=== PATIENT | male | born 1960 | race Caucasian/White ===

== ENCOUNTER 2024-11-06 13:13 | Observation (INO) | payer BC, SELFPAY ==
[2024-11-06] VITALS (106 sets, daily range): BP systolic 126–175; BP diastolic 76–103; PULSE 66–108; RESP 10–25; TEMP 36.9–37.3; O2SAT 85–100
--- NOTE | 2024-11-06 13:30 | DI.CT_ITS ---
Exam(s) CT ABDOMEN PELVIS W EXAM: CT ABDOMEN PELVIS W CLINICAL HISTORY: ? incarcerated hernia. TECHNIQUE: Imaging Protocol: Axial computed tomography images with coronal and sagittal reformatted images were created and reviewed CONTRAST MATERIAL: Intravenous: Omnipaque 350 Contrast volume:100 ml Oral: no COMPARISON: No exams were available for comparison FINDINGS: ABDOMEN and PELVIS: Lung Bases: No acute findings. Mild dependent changes. Liver: Normal density. No suspicious mass. Gallbladder and biliary tract: No radiodense calculus. No wall thickening or pericholecystic fluid. No biliary dilation. Pancreas: Normal density. No abnormal calcifications or inflammatory process. No evidence of mass. Spleen: Normal. Kidneys: Normal size, contour and axis. No radiodense stones. No obstructive uropathy. No suspicious masses seen. Adrenal glands: No masses seen. Vasculature: Abdominal aorta non-dilated. IVC filter in place. Soft tissues: Ventral abdominal wall hernia containing loops of small bowel. The larger hernia is toward the left of the umbilicus. There is a 2nd smaller component to the right of the umbilicus. There is an additional fat containing hernia more inferiorly Bowel: The stomach is markedly distended with fluid. The proximal small bowel is also markedly distended. The small bowel enters into a large ventral hernia. The efferent loop is narrowed in decompressed, consistent with obstruction. There is no evidence of wall thickening or pneumatosis. Peritoneal cavity: Small amount of fluid in the lower pelvis. No focal abscess collection. No mesenteric inflammatory response. No free air. Bones: Unremarkable for age. Reproductive organs: Unremarkable. Lymph nodes: No pathologically enlarged lymph nodes. Bladder: No gross wall thickening. No calculi.No focal mass. IMPRESSION:: Small-bowel obstruction within a large left paraumbilical anterior abdominal wall hernia. The preliminary [facility] report was reviewed. RADIATION DOSE DELIVERED: Total DLP DATA REPOSITORY: All CT scans at this facility are submitted to the National Radiology Data Registry (NRDR) Dose Index Registry (DIR) with the [employer] (A[employer]). RADIATION OPTIMIZATION: All CT scans at this facility use at least one of these dose optimization techniques: automated exposure control; mA and/or kV adjustment per patient size (includes targeted exams where dose is matched to clinical indication); or iterative reconstruction.
--- NOTE | 2024-11-06 13:53 | W.ED.GENAD ---
Discharge Plan Discharge Details Chief Complaint: Abd Prob Primary Care Provider: Rod Stroud ED Provider: Jose Alejandro Miranda Home Meds and New Rx's Prescriptions: No Action warfarin 5 mg tablet 5 mg PO DAILY atorvastatin [Lipitor] 20 mg tablet 20 mg PO DAILY omeprazole 20 mg capsule,delayed release(DR/EC) 20 mg PO DAILY HPI General Date/Time Provider Initiated Documentation: 11/06/24 13:21. HPI Narrative: This is a 64-year-old male presenting to the emergency department with a chief complaint of abdominal pain. 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 Patient states that he began to develop abdominal pain last night it is in the right middle abdomen and periumbilical area. He relates it to incisional hernias that he has. Patient has a history of similar pain in the past although it has historically resolved spontaneously. He is concerned because this is not happening. He has had some nausea and has vomited once. No bloody vomitus and nothing unusual about the vomitus. No diarrhea or constipation. No fevers or rash. No cough or congestion. No dysuria or hematuria. No fevers. Patient denies any recent injuries. Related Data Home Medications ?Medication ?Instructions ?Recorded ?Confirmed atorvastatin 20 mg tablet (Lipitor) 20 mg PO DAILY 11/06/24 11/06/24 omeprazole 20 mg capsule,delayed 20 mg PO DAILY 11/06/24 11/06/24 release warfarin 5 mg tablet 5 mg PO DAILY 11/06/24 11/06/24 Allergies Allergy/AdvReac Type Severity Reaction Status Date / Time Penicillins Allergy Intermediate Swelling/Ed Verified 11/06/24 13:25 christian strawberry Allergy Intermediate Skin Rash Verified 11/06/24 13:25 General Stated Complaint: Abd Prob REBECCA: 3 Review of Systems All systems reviewed & are unremarkable except as noted in HPI and below Constitutional Constitutional: Reports system reviewed and no additional complaints, except as documented, Denies fever(s), Denies weakness and Denies weight loss Eyes Eyes: Denies blurry vision ENT Ears, Nose, Mouth, and Throat: Denies sore throat Cardiovascular Cardiovascular: Denies chest pain, Denies palpitations and Denies dyspnea Respiratory Respiratory: Denies cough, Denies dyspnea and Denies wheezing Gastrointestinal Gastrointestinal: Reports abdominal pain, Denies diarrhea, Reports nausea, Reports vomiting and Denies hematemesis Genitourinary Genitourinary: Denies hematuria and Denies dysuria Musculoskeletal Musculoskeletal: Denies back pain, Denies arthralgias and Denies numbness Neurologic Neurologic: Denies numbness and Denies weakness Psychiatric Psychiatric: Denies suicidal ideation Endocrine Endocrine: Denies palpitations Allergic/Immunologic Allergic/Immunologic: Denies wheezing Exam Const General: no acute distress and well groomed HENMT Mouth: oral mucosae normal and moist mucous membranes Throat: posterior oropharynx normal Eyes Conjunctivae: conjunctivae normal Sclera: sclerae normal Neck Neck: full ROM and No JVD Resp Effort & Inspection: normal respiratory effort Auscultation: clear to auscultation bilaterally Cardio Rate: regular rate Rhythm: regular rhythm Heart Sounds: no murmurs GI Palpation: soft and tender Other: There is tenderness, particularly at the large incisional hernia in the central abdomen. No rebound. Bowel sounds are positive. There is some guarding. Skin General skin exam: no rashes or lesions noted Neuro General: patient alert and patient oriented x3 Extrem General: normal to inspection and full ROM Psych Appearance: grossly normal Mental Status: mental status grossly normal Speech and Movement: speech and movement normal Affect: normal affect Thought Process: normal Course Vital Signs Vital signs: Vital Signs Temperature 36.9 C 11/06/24 13:21 Pulse 101 H 11/06/24 13:21 Respiratory Rate 18 11/06/24 13:21 Blood Pressure 143/90 H 11/06/24 13:21 Pulse Oximetry 97 11/06/24 13:21 Temperature 36.9 C 11/06/24 13:21 Temperature Source Tympanic 11/06/24 13:21 Pulse 101 H 11/06/24 13:21 Respiratory Rate 18 11/06/24 13:21 Blood Pressure 143/90 H 11/06/24 13:21 Blood Pressure Position Sitting 11/06/24 13:21 Pulse Oximetry 97 11/06/24 13:21 Oxygen Delivery Method Room Air 11/06/24 13:21 Oxygen Flow Rate 0 11/06/24 13:21 Pain Level 10 11/06/24 13:21 Medical Decision Making This is a 64-year-old male presents emergency department the chief complaint of abdominal pain. The patient was seen and examined by me. Old charts were reviewed and nursing notes were reviewed. Old charts largely surround some back and leg pain and physical therapy and are unrelated. An IV was established and the patient was bolused with crystalloid. He was provided Dilaudid for pain control and Zofran for nausea. CT was initiated as I am worried about the possibility of a strangulated hernia or an incarcerated hernia or an obstruction. Labs reveal a mildly elevated white count and lactate. CT was initiated which revealed an incarcerated hernia. Patient had been bolused with a liter of crystalloid and a lactate has been redrawn. Further discussion with the patient reveals that he is on Coumadin. 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 He has been on Coumadin since. INR was drawn. Case was discussed with general surgery who are coming to the emergency department to evaluate the patient. [facility] Medical History (Updated 11/06/24 @ 13:58 by Jose Alejandro Miranda MD) Incisional hernia Back pain Social History Smoking/Tobacco Use Status: Never Smoking risk assessment performed?: Yes Alcohol Intake: current Alcohol Intake frequency: holidays/special occasions only Alcohol type: beer and hard liquor Substance use type: does not use
[2024-11-06] MEDS: Ondansetron 4 MG/2 ML VIAL IVP ×3 (14:01→20:42)
[2024-11-06] MEDS: HYDROmorphone 2 MG/ML SYR 0.5 MG IVP ×3 (14:01→20:46)
[2024-11-06] MEDS: Normal Saline 1,000 ML 1000 ML IV (14:03)
[2024-11-06 14:12] LABS: HCT 51.4 % (40.0-50.0); HGB 16.8 g/dL (13.5-17.5); MCH 27.4 pg (27.0-33.0); MCHC 32.7 % (32.0-36.0); MCV 84 fL (80-95); MPV 10.4 fL (8.0-11.0); Platelet Count 223 10^3/uL (130-400); RBC 6.13 10^6/uL (4.36-5.78); RDW 12.9 % (11.8-14.1); RDW-SD 39.4 fL; WBC 13.84 10^3/uL (4.4-10.8)
[2024-11-06 14:28] LABS: ALT 36 U/L (16-63); AST 18 U/L (15-37); Albumin 4.1 g/dL (3.4-5.0); Alkaline Phosphatase 85 U/L (46-116); Anion Gap 10.7 mmol/L (3-11); BUN 17 mg/dL (7-18); Bilirubin, Total 0.6 mg/dL (0.2-1.0); CO2 28.3 mmol/L (21.0-32.0); Calcium 9.6 mg/dL (8.5-10.1); Chloride 104 mmol/L (98-107); Estimated GFR 75.90 (mL/min/1.73m2); Glucose 160 mg/dL (74-106); Potassium 4.2 mmol/L (3.5-5.1); Sodium 143 mmol/L (136-145); Total Protein 8.2 g/dL (6.4-8.2)
[2024-11-06] MEDS: HYDROmorphone 2 MG/ML SYR 0.25 MG IVP (15:48)
[2024-11-06] MEDS: Prochlorperazine 10 MG/2 ML VIAL IVP (15:52)
[2024-11-06] MEDS: Omnipaque 350 MG/ML 100 ML BTL IJ (15:58)
[2024-11-06] MEDS: Normal Saline - Diluent 50 ML VIAL IJ (15:59)
[2024-11-06] MEDS: Normal Saline Flush 10 ML SYR IVP (16:01)
--- NOTE | 2024-11-06 16:15 | DI.[facility]_ITS ---
Addendum created by Fartun Womack MD on 11/06/2024 4:15:40 PM EDT: I discussed case findings with Jose Alejandro Miranda 11/06/2024 4:15 PM EDT. Initial report created on 11/06/2024 4:14:02 PM EDT: PROCEDURE INFORMATION: Exam: CT Abdomen And Pelvis With Contrast Exam date and time: 11/06/2024 3:53 PM Age: 64 years old Clinical indication: Other: ? Incarcerated hernia TECHNIQUE: Imaging protocol: Computed tomography of the abdomen and pelvis with contrast. Contrast material: OMNIPQUE 350; Contrast volume: 100 ml; Contrast route: INTRAVENOUS (IV); COMPARISON: No relevant prior studies available. FINDINGS: Lungs: There is mild bibasilar atelectasis. Liver: Normal. No mass. Gallbladder and biliary ducts: Gallbladder partially contracted. Pancreas: Normal. No ductal dilation. Spleen: Normal. No splenomegaly. Adrenal glands: Normal. No mass. Kidneys and ureters: Normal. No hydronephrosis. Stomach and bowel: There is marked gastric distension. There are 3 anterior abdominal wall bowel containing hernias. There are multiple distended small bowel loops with diameter exceeding 4 cm. There is a transition zone involving the most superior hernia with afferent distension and efferent decompression. This corresponds to the approximate distal jejunal level. There is postsurgical change in the upper abdomen. Appendix: No evidence of appendicitis. Intraperitoneal space: There is a small amount of free fluid present in the deep pelvis. Vasculature: Caval filter in place. Lymph nodes: Unremarkable. No enlarged lymph nodes. Urinary bladder: Unremarkable as visualized. Reproductive: Unremarkable as visualized. Bones/joints: Moderate lumbar spondylosis. Soft tissues: See Stomach and bowel finding. IMPRESSION: There are several bowel containing anterior abdominal wall hernias. There is high-grade small bowel obstruction associated with incarceration of the most superior hernia. Dictated and Authenticated by: Fartun Womack MD. Orderin Ruben Blount MD
[2024-11-06 16:47] LABS: INR 1.8 (0.9-1.1); Prothrombin Time 17.4 sec (9.1-11.1)
--- NOTE | 2024-11-06 17:48 | W.PM.HP.N ---
Date of service: 11/06/24 Time of Service: 17:48 Assessment and Plan Assessment and plan (1) Small bowel obstruction: Status: Acute Assessment and plan: I was able to review the CT scan, and I do think it is congruent with his history and exam, demonstrating an acute small bowel obstruction associated with his incisional hernia. We talked about the natural history of this, my recommendation for surgery to at least address the small bowel obstruction. Irwin is quite nervous about the prospects of an operation, and largely this seems associated with regret for his original surgery versus alternative treatments. We talked about a number of different treatment strategies, and as the major problem at this moment is the small bowel obstruction, he is most interested in attempted reduction under sedation and reassessment thereafter. I explained that this is suboptimal in the sense that it precludes direct visualization of the bowel, which could certainly be ischemic and at risk for necrosis and perforation. I think Irwin understands that quite clearly, and he still prefers at least an attempt at that. After reviewing all the other options with Irwin, we elected to proceed with attempted reduction and a trial of observation. I inserted a nasogastric tube in the usual fashion, and decompress the stomach, which did have a fair amount of gastric contents. We left this in place for about half an hour. After that, with procedural sedation administered by the emergency department staff, and with Irwin in steep Trendelenburg positioning, I applied slow gentle pressure along the hernia, carefully manipulating the contents of the hernia and reducing them back into the peritoneal cavity. There were audible bowel sounds immediately after reduction. With deep and retraction, I can palpate the entire edge of the fascia, and it feels that the hernia sac and all of its contents are entirely reduced. As pressure is released, there is almost immediate return of the hernia, but it remains easily reducible, and I am optimistic that the small bowel obstruction has been relieved. With the hernia reduced I applied an ice pack over top of the length of the incision, and secured this in place with an abdominal binder. Irwin was then allowed to awaken from the anesthetic. Subjectively, his symptoms were already improved. I will admit him to the floor, with ongoing nasogastric decompression for now. I will repeat the serum lactate in a few hours to ensure that that remains on a downward trajectory. Obviously, if Irwin has any worrisome symptoms of peritonitis, then we need to reconsider exploration. I will also repeat some basic labs in the morning to ensure that the leukocytosis is resolving. History of Present Illness History of Present Illness Chief Complaint: abdominal pain Narrative: Irwin is 64 years old. He has known incisional hernias that he estimates have been around for about 20 years or so. They occurred after 2 laparotomies for excision of desmoid tumors. Although he occasionally gets some discomfort at the hernia site, generally, he is not bothered by them. They tend to be soft, and it sounds like he is able to reduce them. Sometime late last night, around 11:00 he started experiencing sharp pain little bit to the left side of his incision. It felt different in terms of character compared to discomfort he had in the past. He noticed that the hernia site felt a little more firm, and despite various attempts at repositioning, and manipulating the hernia, he was not able to reduce it. The pain became more intense today, was associated with nausea, vomiting, some fatigue and a little bit of lightheadedness. He came to the emergency department with those major complaints. He had a low-grade leukocytosis, and a serum lactate level around 3. He underwent a CT scan of the abdomen and pelvis that confirmed multiple midline ventral hernias, and concern for an acute small bowel obstruction associated with the upper left portion of the defect. Other past medical history includes deep vein thrombosis for which she takes warfarin. This diagnosis was back at the time of his desmoid tumors. He also has an inferior vena cava filter. He is allergic to penicillin and strawberries. Review of Systems Constitutional Constitutional: Reports fatigue, Denies fever(s) and Reports lethargy Eyes Eyes: Reports system reviewed and no additional complaints, except as documented ENT Ears, Nose, Mouth, and Throat: Reports system reviewed and no additional complaints, except as documented Cardiovascular Cardiovascular: Denies chest pain and Denies dyspnea Respiratory Respiratory: Denies chest congestion, Denies cough and Denies dyspnea Gastrointestinal Gastrointestinal: Reports abdominal pain, Reports belching, Denies change in bowel habits, Reports nausea and Reports vomiting Genitourinary Genitourinary: Reports system reviewed and no additional complaints, except as documented Musculoskeletal Musculoskeletal: Reports system reviewed and no additional complaints, except as documented Neurologic Neurologic: Denies behavioral changes and Denies memory loss Psychiatric Psychiatric: Denies behavioral changes and Denies memory loss Endocrine Endocrine: Reports fatigue Hematologic/Lymphatic Hematologic/Lymphatic: Denies easy bleeding and Denies easy bruising PFSH All Active Problems (Updated 11/06/24 @ 18:03 by Daniel Álvarez MD) Small bowel obstruction (Acute) Medical History Incisional hernia Back pain Social History Smoking/Tobacco Use Status: Never Smoking risk assessment performed?: Yes Alcohol Intake: current Alcohol Intake frequency: holidays/special occasions only Alcohol type: beer and hard liquor Substance use type: does not use Meds Allergies and Home Medications Allergies Allergy/AdvReac Type Severity Reaction Status Date / Time Penicillins Allergy Intermediate Swelling/Ed Verified 11/06/24 13:25 christian strawberry Allergy Intermediate Skin Rash Verified 11/06/24 13:25 Home Medications ?Medication ?Instructions ?Recorded ?Confirmed ?Type atorvastatin 20 mg tablet (Lipitor) 20 mg PO DAILY 11/06/24 11/06/24 History omeprazole 20 mg capsule,delayed 20 mg PO DAILY 11/06/24 11/06/24 History release warfarin 5 mg tablet 5 mg PO DAILY 11/06/24 11/06/24 History Exam Const General: cooperative and ill appearing Orientation: alert, awake and oriented x3 HENMT Head: normal to inspection Eyes General: appearance normal, both eyes and all related structures Neck Neck: normal visual inspection, full ROM and no lymphadenopathy Chest Chest: normal inspection of the chest Resp Effort & Inspection: normal respiratory effort and no cough Auscultation: clear to auscultation bilaterally Cardio Rate: regular rate Rhythm: regular rhythm Heart Sounds: S1 normal and S2 normal GI Inspection: distended Palpation: soft and hernia (midline incisional; no ecchymosis) Auscultation: absent bowel sounds Skin General skin exam: no rashes or lesions noted Lesions: no lesions Neuro General: patient alert, patient awake and patient oriented x3 Results Labs 11/06/24 14:00 11/06/24 14:00 Labs: Laboratory Results - last 24 hr 11/06/24 11/06/24 14:00 16:25 WBC 13.84 H RBC 6.13 H Hgb 16.8 Hct 51.4 H MCV 84 MCH 27.4 MCHC 32.7 RDW 12.9 Plt Count 223 MPV 10.4 PT 17.4 H INR 1.8 H VBG Lactate 3.5 H* 2.3 H* Sodium 143 Potassium 4.2 Chloride 104 Carbon Dioxide 28.3 Anion Gap 10.7 BUN 17 Creatinine 1.1 Est GFR (CKD-EPI 2020) 75.90 Glucose 160 H Calcium 9.6 Total Bilirubin 0.6 AST 18 ALT 36 Alkaline Phosphatase 85 Total Protein 8.2 Albumin 4.1 Last Vital Signs Temp 98.4 F 11/06/24 13:21 Pulse 85 11/06/24 15:50 Resp 15 11/06/24 15:50 BP 143/90 H 11/06/24 13:21 Pulse Ox 93 11/06/24 15:50 Time Spent Time spent with Patient: >75 minutes Time was spent: preparing to see the patient(eg.review tests), obtaining and/or reviewing separately otained hiistory, ordering medications,tests, procedures, referring, communicating with other health healthcare specialist, indepentently interpreting results, counseling the patient and care coordination
[2024-11-06] MEDS: Normal Saline 1,000 ML 125 ML IV (18:22)
[2024-11-06] MEDS: Propofol 200 MG/20 ML VIAL 100 MG IVP (18:55)
--- NOTE | 2024-11-06 19:06 | DI.RAD_ITS ---
Exam(s) XR PORTABLE CHEST AP POST LINE EXAM: XR PORTABLE CHEST AP POST LINE CLINICAL HISTORY: NGT placement. TECHNIQUE: 2D digital imaging was performed. COMPARISON: CT CT ABDOMEN PELVIS W from 11/06/2024 FINDINGS: Single AP portable view. There is an NG tube in stomach. Heart size is upper normal. The mediastinum is not widened. There is mild infiltrate in the left lower lobe posterior basal segment. No pleural effusions. No pulmonary edema. IMPRESSION: Mild left lower lobe increased markings either atelectasis or mild infiltrate. DATA REPOSITORY: RADIATION DOSE DELIVERED:
--- NOTE | 2024-11-06 19:57 | DI.[facility]AD_ITS ---
PROCEDURE INFORMATION: Exam: XR Chest Exam date and time: 11/06/2024 7:33 PM Age: 64 years old Clinical indication: Device placement; Ng tube placement TECHNIQUE: Imaging protocol: Radiologic exam of the chest. Views: 1 view. COMPARISON: CT ABDOMEN PELVIS W 11/06/2024 3:53 PM FINDINGS: Tubes, catheters and devices: Nasogastric tube in place. The tip is seen at the gastric cardia level. Lungs: Left lower lobe atelectasis. Pleural spaces: Unremarkable. No pleural effusion. No pneumothorax. Heart/Mediastinum: Cardiomegaly. Bones/joints: Unremarkable. Gastrointestinal tract: Small bowel distension noted. IMPRESSION: Nasogastric tube tip at the gastric cardia level. Dictated and Authenticated by: Fartun Womack MD. Orderin Henri Sanchez MD
[2024-11-06] MEDS: Lactated Ringers 1,000 ML 75 ML IV (22:24)
[2024-11-06] MEDS: ACETAMINOPHEN 1,000 MG/100 ML BAG 400 MG IVPB (22:24)
[2024-11-06] MEDS: Pantoprazole 40 MG VIAL IVP (22:25)
--- NOTE | 2024-11-06 23:11 | W.EDPROG ---
Date of service: 11/06/24 Time of Service: 23:11 Medical Decision Making Patient was received in signout, please refer to Dr. Miranda's physical exam, assessment and plan. At time of signout we are awaiting follow-up by surgery, Dr. Daniel Álvarez came and evaluated the patient, he did offer surgical intervention to the patient however the patient declined secondary to his history of complications with surgeries. Hernia certainly needs reduction, we did offer the patient sedation for reduction, and discussed the risks and benefits associated with this. Through shared decision making process between surgery and the patient patient has consented and would like to move forward with reduction via sedation. I discussed risks and benefits of sedation with the patient and he also agrees and understands and is a personal discussion between he and I. Patient was subsequently sedated with propofol, and his hernia was reduced without complication. He will be admitted to the medical surgical floor for further monitoring. I have extensively reviewed the treatment plan with the patient. I have addressed all patient concerns at this time. I have also discussed the plan with the admitting physician and they agree with the current assessment and plan and have agreed to assume responsibility for the patient. All parties demonstrate verbal understanding and agreement with our assessment and plan at this time. The documentation in this chart was dictated using [employer] dictation software. Please excuse any dictation errors. Procedure Procedural Sedation Date of Procedure: 11/06/24 Time of procedure: 23:13 Provider that performed the procedure: Jose Alejandro Reyes Indication: Pain control and Procedural optimization Patient Consented: Verbally and Written Standard Time Out Performed: Yes Sedation Given: Propofol Amount of sedation(mg): 90 Preparation: surveillance monitor applied, pulse oximeter, capnometry used, supplemental O2 applied, reversal agents at bedside and suction/airway equipment at bedside Time of Last PO Intake: 12:00 Discharge Plan Disposition Patient Disposition: Admit to [facility] Condition: Improving Discharge Details Clinical Impression: Incarcerated incisional hernia Admit Date/Time: 11/06/24 19:06 Admit Provider: Daniel Álvarez Attending Provider: Daniel Álvarez Primary Care Provider: Rod Stroud ED Provider: Jose Alejandro Reyes
--- NOTE | 2024-11-07 02:49 | W.PC.ACHO ---
Registration Status: ADM YVAN Primary Language: Preferred Language: ED Information & Data Chief Complaint Abd Prob 11/06/24 14:04 Chief Complaint Abd Prob 11/06/24 13:56 Triage Note h/o multiple abdominal 11/06/24 13:21 surgeries resulting in numerous hernias. Has had numerous incidents in the past that food was unable to pass. Pain started at midnight last night after dinner- this is more painful than anything he has ever had in the past. Vomited undigested food this AM Medical / Surgical History (Last Reviewed 11/06/24 @ 17:50 by Daniel Álvarez MD) Incisional hernia Back pain Most Recent Vital Signs Temperature 37.3 C 11/06/24 21:22 Temperature Source Tympanic 11/06/24 13:21 Pulse 89 11/06/24 21:22 Pulse Rhythm Regular 11/06/24 21:22 Pulse 80 11/06/24 20:50 Respiratory Rate 18 11/06/24 21:22 Respiratory Effort Normal 11/06/24 21:22 Respiratory Depth Normal 11/06/24 21:22 Respiratory Pattern Normal 11/06/24 21:22 Blood Pressure 150/84 H 11/06/24 21:22 Blood Pressure Mean 99 11/06/24 20:46 Blood Pressure Position Sitting 11/06/24 13:21 Pulse Oximetry 94 11/06/24 21:38 Respiratory End-tidal CO2 42 11/06/24 20:50 Oxygen Delivery Method Nasal Cannula 11/06/24 21:38 Oxygen Flow Rate 2 11/06/24 21:38 Pain Level 2 11/06/24 21:22 Allergies Penicillins Allergy (Intermediate, Verified 11/06/24 13:25) Swelling/Edema strawberry Allergy (Intermediate, Verified 11/06/24 13:25) Skin Rash Active Medications Generic Name Dose Route Start Last Admin Trade Name Freq PRN Reason Stop Dose Admin Ringer's Solution 1,000 mls @ 75 mls/hr 11/06/24 21:12 11/06/24 22:24 IV 75 mls/hr INFUSION KEELY Administration Acetaminophen 1,000 mg in 100 mls @ 400 mls/hr 11/06/24 22:00 11/06/24 22:24 Ofirmev IVPB 400 mls/hr Q6H KEELY Administration Pantoprazole Sodium 40 mg 11/06/24 22:30 11/06/24 22:25 Pantoprazole 40 Mg Vial IVP 40 mg DAILY@0730 KEELY Administration IV IV Catheter Type [Right Peripheral IV Antecubital] IV Catheter Type [Left Peripheral IV Antecubital] IV Catheter Gauge [Right 18 Antecubital] IV Catheter Gauge [Left 18 Antecubital] Diet Orders Category Date Time Status Nothing Per Oral [DIET] Nutrition 11/06/24 21:12 Active Diagnostics 11/07/24 11/06/24 11/06/24 Range/Units Unknown : 16:25 WBC Pending (4.4-10.8) 10^3/uL RBC Pending (4.36-5.78) 10^6/uL Hgb Pending (13.5-17.5) g/dL Hct Pending (40.0-50.0) % MCV Pending (80-95) fL MCH Pending (27.0-33.0) pg MCHC Pending (32.0-36.0) % RDW Pending (11.8-14.1) % Plt Count Pending (130-400) 10^3/uL MPV Pending (8.0-11.0) fL Immature Gran % Pending Neutrophils % Pending Lymphocytes % Pending Monocytes % Pending Eosinophils % Pending Basophils % Pending Absolute Neutrophils Pending Absolute Lymphocytes Pending Absolute Monocytes Pending Absolute Eosinophils Pending Absolute Basophils Pending PT Pending 17.4 H (9.1-11.1) sec INR Pending 1.8 H (0.9-1.1) VBG Lactate 2.0 2.3 H* (<or=2.0) mmol/L Sodium Pending (136-145) mmol/L Potassium Pending (3.5-5.1) mmol/L Chloride Pending (98-107) mmol/L Carbon Dioxide Pending (21.0-32.0) mmol/L Anion Gap Pending (3-11) mmol/L BUN Pending (7-18) mg/dL Creatinine Pending (0.70-1.30) mg/dL Est GFR (CKD-EPI 2020) Pending (mL/min/1.73m2) Glucose Pending (74-106) mg/dL Calcium Pending (8.5-10.1) mg/dL Total Bilirubin (0.2-1.0) mg/dL AST (15-37) U/L ALT (16-63) U/L Alkaline Phosphatase (46-116) U/L Total Protein (6.4-8.2) g/dL Albumin (3.4-5.0) g/dL 11/06/24 Range/Units 14:00 WBC 13.84 H (4.4-10.8) 10^3/uL RBC 6.13 H (4.36-5.78) 10^6/uL Hgb 16.8 (13.5-17.5) g/dL Hct 51.4 H (40.0-50.0) % MCV 84 (80-95) fL MCH 27.4 (27.0-33.0) pg MCHC 32.7 (32.0-36.0) % RDW 12.9 (11.8-14.1) % Plt Count 223 (130-400) 10^3/uL MPV 10.4 (8.0-11.0) fL Immature Gran % Neutrophils % Lymphocytes % Monocytes % Eosinophils % Basophils % Absolute Neutrophils Absolute Lymphocytes Absolute Monocytes Absolute Eosinophils Absolute Basophils PT (9.1-11.1) sec INR (0.9-1.1) VBG Lactate 3.5 H* (<or=2.0) mmol/L Sodium 143 (136-145) mmol/L Potassium 4.2 (3.5-5.1) mmol/L Chloride 104 (98-107) mmol/L Carbon Dioxide 28.3 (21.0-32.0) mmol/L Anion Gap 10.7 (3-11) mmol/L BUN 17 (7-18) mg/dL Creatinine 1.1 (0.70-1.30) mg/dL Est GFR (CKD-EPI 2020) 75.90 (mL/min/1.73m2) Glucose 160 H (74-106) mg/dL Calcium 9.6 (8.5-10.1) mg/dL Total Bilirubin 0.6 (0.2-1.0) mg/dL AST 18 (15-37) U/L ALT 36 (16-63) U/L Alkaline Phosphatase 85 (46-116) U/L Total Protein 8.2 (6.4-8.2) g/dL Albumin 4.1 (3.4-5.0) g/dL Intake and Output - 24 Hour Total 11/06/24 13:13 thru 11/06/24 23:12 Intake Total 1000 Output Total 700 Balance 300 Weight 101.151 kg Intake: IV 1000 Output: Gastric Drainage 700 Other: Urine Color Yellow Urine Appearance Clear Falls Risk Assessment History of Falls No History 11/06/24 21:22 Contributing Factors No Factors 11/06/24 21:22 Ambulatory Aids Uses ambulatory device 11/06/24 21:22 Tubes/Lines None 11/06/24 21:22 Gait Evaluation W/no contributing factors 11/06/24 21:22 Cognition No cognitive impairment 11/06/24 21:22 Fall Total Score 11/06/24 21:22 Level of Risk Moderate Risk 11/06/24 21:22 Problems (Last Reviewed 11/06/24 @ 17:50 by Daniel Álvarez MD) Small bowel obstruction (Acute) v v v v v v v v v Sending and/or Receiving Nurses: Please use comment section below to note any information pertinent to the patient hand-off not included above. Information / Comments: Report received from:Elenita RIVAS . All questions answered.
[2024-11-07] MEDS: ACETAMINOPHEN 1,000 MG/100 ML BAG 400 MG IVPB ×2 (04:18→10:02)
[2024-11-07 06:40] LABS: Abs Immature Grans 0.01 10^3/uL (0.0-0.06); HCT 48.9 % (40.0-50.0); HGB 16.3 g/dL (13.5-17.5); Immature Grans % 0.2 %; MCH 28.9 pg (27.0-33.0); MCHC 33.3 % (32.0-36.0); MCV 87 fL (80-95); MPV 10.8 fL (8.0-11.0); Platelet Count 200 10^3/uL (130-400); RBC 5.64 10^6/uL (4.36-5.78); RDW 13.4 % (11.8-14.1); RDW-SD 42.7 fL; WBC 6.50 10^3/uL (4.4-10.8)
[2024-11-07 06:46] LABS: INR 1.9 (0.9-1.1); Prothrombin Time 18.7 sec (9.1-11.1)
[2024-11-07 06:55] LABS: Anion Gap 10.2 mmol/L (3-11); BUN 25 mg/dL (7-18); CO2 26.8 mmol/L (21.0-32.0); Calcium 8.8 mg/dL (8.5-10.1); Chloride 106 mmol/L (98-107); Estimated GFR 75.90 (mL/min/1.73m2); Glucose 150 mg/dL (74-106); Potassium 4.3 mmol/L (3.5-5.1); Sodium 143 mmol/L (136-145)
[2024-11-07 07:28] VITALS: BP 127/78; PULSE 86; RESP 17; TEMP 36.6; O2SAT 95
--- NOTE | 2024-11-07 08:41 | INITIAL_ITS ---
Date of service: 11/07/24 Time of Service: 08:41 Care Management Initial Assmt Initial Assessment Reason for Hospitalization: SBO Functional Status/Living Situation Patient Presentation: Irwin was sitting up in bed when CM met with him. He was pleasant in interaction and easily engaged with CM. Irwin lives alone in a single family home in [place] with his cat Bill and saundra Rose. He has never been and does not have any children. When asked about supportive people in his life, he identified his brother Jareth who lives in [place]. They remain close despite the distance.Irwin has been working at [employer] however he has been out on disability for a while now. He applied for fpc disability in early October and expects to receive a determination soon. Irwin informed CM that he has Advanced Directives however they were filed with his PCP in [place]. There is no copy in his EMR at [facility]. CM suggested that it might be a good idea to drop off a copy at the hospital sometime so that we would have it on file. He agreed to do so. Irwin was admitted with a SBO which resulted from an incisional hernia. The surgeon was able to reduce the hernia last night and the obstruction resolved. Irwin will be discharged later today and will drive himself home. Town of Residence: [place] Resides with: Alone Significant Other/Family: Out of area (brother Jareth in [place]) Employment Status: Disabled (has had short term disability for chronic back i ssues and has applied for fpc disability) Instrumental Activities of Daily Living (ADLs): Independent Medications Medication Management: No Issues/Barriers identified Advance Directives Advance Directives: Do you have an Advance Directive: AD On File at [facility]: Date Asked AD Date Reviewed COLST On File at [facility] COLST Date Scanned Code Status Resuscitation Status Full Code Portal Pt does not currently have a portal and education provided: Yes Insurance Coverage/Financial Issues Insurance: BC/BS [place] Care Team Visit Care Team Role Provider Type Rod Stroud Primary Care Provider OSTEOPATHIC DOCTOR Jose Alejandro Reyes DO Emergency Provider [facility] STAFF PHYSICIAN Daniel Álvarez MD Admit Provider [facility] STAFF PHYSICIAN Attending Provider Discharge Potential Discharge Needs: Surgical F/U Appt Anticipated Barriers to Discharge: None Identified Patient/Family Education Needs: Review discharge instructions, discuss Ask Me Three Transportation: Private vehicle Plan: Anticipate Irwin will be discharged home with no new services. He will follow up with his surgeon and plan of care and transport with family. CM will follow and continue to support discharge planning efforts. Social Determinants of Health Screening Social Determinants of health last assessed in clinic: 11/07/24 Will the Patient Participate in the Screening?: Yes Do you worry about having a steady place to live?: no Problems where you live: no known problems In the past 12 months, have you had to go without electric, gas, oil or water in your home?: no 1. Within the past 12 months, we worried whether our food would run out before we got money to buy more.: Never true 2. Within the past 12 months, the food we bought just didn't last and we didn't have money to get more.: Never true Has lack of transportation kept you from medical appointments or from doing things needed for daily living?: no Has anyone in your life made you feel unsafe or unsupported?: no How hard is it for you to pay for the very basics like food, housing, medical care, and heating? Would you say it is:: Not hard at all Do you want help finding or keeping work or a job?: I do not need or want help If for any reason you need help with day-to-day activities such as bathing, preparing meals, shopping, managing finances, etc., do you get the help you need?: I don?t need any help How often do you feel lonely or isolated from those around you?: Never Do you speak a language other than Bolivian at home?: No Does the patient want assistance with any of the above?: No PFSH All Active Problems (Updated 11/06/24 @ 23:14 by Jose Alejandro Reyes DO) Incarcerated incisional hernia (Acute) Small bowel obstruction (Acute) Medical History Incisional hernia Back pain Social History Smoking/Tobacco Use Status: Never Smoking risk assessment performed?: Yes Alcohol Intake: current Alcohol Intake frequency: holidays/special occasions only Alcohol type: beer and hard liquor Substance use type: does not use Housing: house
[2024-11-07] MEDS: Lactated Ringers 1,000 ML 75 ML IV (12:37)
--- NOTE | 2024-11-07 12:45 | NUR.NOTE ---
Nursing Note: Documentation by VERA Duvall student reviewed.
--- NOTE | 2024-11-07 16:28 | W.PM.DS.N ---
Date of service: 11/07/24 Time of Service: 16:28 DS: Diagnosis Discharge Diagnosis (1) Small bowel obstruction: Status: Acute Asessment and Plan: Outpatient follow-up Discharge Plan Disposition Patient Disposition: Home Condition: Good Discharge Details Reason For Visit: Incisional Hernia with Bowel Obstruction Admit Date/Time: 11/06/24 19:06 Admit Provider: Daniel Álvarez Attending Provider: Daniel Álvarez Primary Care Provider: Rod Stroud Hospital Course Hospital Course: Irwin is 64 years old. He has a large incisional ventral hernia. He presented to the emergency department with acute onset of pain, and obstructive symptoms. He preferred a trial of nonoperative management, and with procedural sedation, I was able to reduce the hernia. The nasogastric tube was maintained overnight, and the following day was clamped and eventually removed. He was pain-free, passing flatus and discharged home with outpatient follow-up Home Meds and New Rx's Prescriptions: Continued warfarin 5 mg tablet 5 mg PO DAILY atorvastatin [Lipitor] 20 mg tablet 20 mg PO DAILY omeprazole 20 mg capsule,delayed release(DR/EC) 20 mg PO DAILY Discharge Instructions Additional Instructions: Irwin, I really enjoyed meeting you, and am so glad that you have relief of the bowel obstruction. I will remain optimistic for you as well. As I am sure you recall, you came to the hospital with pain around your hernia site, and the CAT scan demonstrated that there was an obstruction of the small intestine associated with the hernia. With sedation in the emergency department, we were able to reduce the hernia, and this appears to have alleviated the bowel obstruction. As we talked about afterward, there is no way to ensure that this will not happen again. But you have had the hernia for some time, and this has been the first major complication associated with it. Hopefully your transition home will be smooth and uneventful. I had mentioned in the hospital, that I recommended just a little bit of MiraLAX over the next few days as everything settles down. A capful in the morning mixed with 8 ounces of liquid, and a capful in the evening mixed with a beverage is a very reasonable strategy. There is probably not much benefit after 2 to 3 days of this. I also think you are smart to maintain some type of supportive garment to help relieve pressure into the hernia sac. As I mentioned, I will have the office call you tomorrow to schedule a follow-up visit in the next week or 2. Certainly if you need anything in the meantime, do not hesitate to call at [phone]. Activity:: Activity as Tolerated Equipment/Supplies:: No Equipment Needed Diet:: As Tolerated DS: Summary Time Spent with Patient providing and/or coordinating discharge services: Less than 30 minutes Status at Discharge Functional status at discharge: independent ambulation Overall status at discharge: patient is back to baseline Mental Status: mental status grossly normal Speech and Movement: speech and movement normal Mood: congruent mood Affect: normal affect Exam Psych Mental Status: mental status grossly normal Speech and Movement: speech and movement normal Mood: congruent mood Affect: normal affect DS: Data Vitals/I&O Vitals and I&O: Vital Signs Temperature 97.9 F 11/07/24 07:28 Temperature Source Temporal Artery Scan 11/07/24 07:28 Pulse 86 11/07/24 07:28 Pulse Rhythm Regular 11/06/24 21:22 Pulse 80 11/06/24 20:50 Respiratory Rate 17 11/07/24 07:28 Respiratory Effort Normal 11/06/24 21:22 Respiratory Depth Normal 11/06/24 21:22 Respiratory Pattern Normal 11/06/24 21:22 Blood Pressure 127/78 11/07/24 07:28 Blood Pressure Mean 94 11/07/24 07:28 Blood Pressure Position Sitting 11/06/24 13:21 Pulse Oximetry 95 11/07/24 07:28 Respiratory End-tidal CO2 42 11/06/24 20:50 Oxygen Delivery Method Room Air 11/07/24 07:28 Oxygen Flow Rate 0 11/07/24 07:28 Pain Level 0 11/07/24 07:28 Intake & Output 11/06/24 11/07/24 11/07/24 23:59 11:59 23:59 Intake Total 1100 / 1100 1200 / 1200 Output Total 700 / 700 850 / 1150 300 / 1150 Balance 400 / 400 350 / 50 -300 / 50 Weight 223 lb Intake: IV 1100 / 1100 1200 / 1200 Output: Gastric Drainage 700 / 700 850 / 850 Right Nare 150 / 150 850 / 850 Urine 300 / 300 Other: Urine Color Yellow Dark Adniela Urine Appearance Clear Clear Urine Odor Strong Data Completed and Pending Labs on day of discharge: Labs from last 24 hours 11/07/24 11/06/2425 06:16 21:28 16:25 WBC 6.50 RBC 5.64 Hgb 16.3 Hct 48.9 MCV 87 MCH 28.9 MCHC 33.3 RDW 13.4 Plt Count 200 MPV 10.8 Immature Gran % 0.2 Neutrophils % 78.7 Lymphocytes % 4.5 Monocytes % 16.3 Eosinophils % 0.0 Basophils % 0.3 Nucleated RBC % 0.0 Absolute Neutrophils 5.12 Absolute Lymphocytes 0.29 L Absolute Monocytes 1.06 H Absolute Eosinophils 0.00 Absolute Basophils 0.02 PT 18.7 H 17.4 H INR 1.9 H 1.8 H VBG Lactate 2.0 2.3 H* Sodium 143 Potassium 4.3 Chloride 106 Carbon Dioxide 26.8 Anion Gap 10.2 BUN 25 H Creatinine 1.1 Est GFR (CKD-EPI 2020) 75.90 Glucose 150 H Calcium 8.8 PFSH All Active Problems (Updated 11/06/24 @ 23:14 by Jose Alejandro Reyes DO) Incarcerated incisional hernia (Acute) Small bowel obstruction (Acute) Medical History Incisional hernia Back pain Social History Smoking/Tobacco Use Status: Never Smoking risk assessment performed?: Yes Alcohol Intake: current Alcohol Intake frequency: holidays/special occasions only Alcohol type: beer and hard liquor Substance use type: does not use Housing: house Time Spent with Patient Time Spent with Patient: <45 minutes Time was spent: preparing to see the patient(eg.review tests), obtaining and/or reviewing separately otained hiistory and indepentently interpreting results
--- NOTE | 2024-11-07 16:37 | W.PM.PROGNOT ---
Date of Service Date of service: 11/07/24 Time of Service: 16:37 Assessment and Plan Assessment and plan (1) Incarcerated incisional hernia: Status: Acute Assessment and plan: Irwin seems to be doing well after reduction of the incarcerated hernia. Clinically, the small bowel obstruction seems resolved, and his white cell count is normalized with no ongoing symptoms of any small bowel pathology. I will advance his diet, discharge him today, and he can follow-up as an outpatient. Subjective Subjective Interval history since last seen: Irwin looks great. He tolerated nasogastric tube clamp trial today without any symptoms. He has a little tiny bit of discomfort at the hernia site, but otherwise feels back to normal. He is passing flatus Exam GI Other: Abdomen is soft, not distended. He has great bowel sounds. Objective Last Vital Signs Temp 97.9 F 11/07/24 07:28 Pulse 86 11/07/24 07:28 Resp 17 11/07/24 07:28 BP 127/78 11/07/24 07:28 Pulse Ox 95 11/07/24 07:28 Laboratory Results - last 24 hr 11/06/24 11/06/24 11/07/24 16:25 21:28 06:16 WBC 6.50 RBC 5.64 Hgb 16.3 Hct 48.9 MCV 87 MCH 28.9 MCHC 33.3 RDW 13.4 Plt Count 200 MPV 10.8 Immature Gran % 0.2 Neutrophils % 78.7 Lymphocytes % 4.5 Monocytes % 16.3 Eosinophils % 0.0 Basophils % 0.3 Nucleated RBC % 0.0 Absolute Neutrophils 5.12 Absolute Lymphocytes 0.29 L Absolute Monocytes 1.06 H Absolute Eosinophils 0.00 Absolute Basophils 0.02 PT 17.4 H 18.7 H INR 1.8 H 1.9 H VBG Lactate 2.3 H* 2.0 Sodium 143 Potassium 4.3 Chloride 106 Carbon Dioxide 26.8 Anion Gap 10.2 BUN 25 H Creatinine 1.1 Est GFR (CKD-EPI 2020) 75.90 Glucose 150 H Calcium 8.8 Time Spent with Patient Time Spent with Patient: 35-49 minutes Time was spent: preparing to see the patient(eg.review tests), indepentently interpreting results and counseling the patient
--- NOTE | 2024-11-07 17:43 | PDOC.CMDIS ---
Date of service: 11/07/24 Time of Service: 17:43 LACE Index Scoring Tool Questions: Length of Stay (in days): 1 Was the patient admitted via the E.D.?: Yes E.D. Visits: 1 Answers: Total Score: 5 Risk of Readmission: Low Risk Care Management Discharge Plan Reason for Hospitalization: SBO Discharge Plan: Irwin will be discharged home with no new services. He will follow up with his surgeon and plan of care and will drive himself home. Patient/Family Education Needs: Review discharge instructions, discuss Ask Me Three
== END 2024-11-07 17:46 | disposition home or self-care (01) ==
LOC: ER 17:56 → MS 23:14
PROVIDERS: Emergency Medicine; Admitting Provider Surgery; Emergency Provider Student in an Organized Health Care Education/Training Program; PCP Family Medicine; Responsible Provider Surgery; Visit Provider Surgery
DX: K43.0 Incisional hernia with obstruction, without gangrene (principal); Z86.718 Personal history of other venous thrombosis and embolism; Z79.01 Long term (current) use of anticoagulants
CPT/HCPCS: 00123; 36415; 71045; 80048; 80053; 85027; 96361; 96374; 96375; 96376; 99156; 99285; 74177; 83605; 85025; 85610; 94760; G0378; J0131; J0780; J1171; J2405; J2470; J2704; J3490